=== PATIENT | male | born 1960 | race Caucasian/White ===

== ENCOUNTER 2023-04-10 09:40 | Day surgery (SDC) | payer MEDICARE, MEDICAID, SELFPAY ==
[2023-04-10] VITALS (7 sets, daily range): BP systolic 103–138; BP diastolic 68–84; PULSE 74–94; RESP 14–18; TEMP 36.1; O2SAT 94–100; BMI 19.9
[2023-04-10] MEDS: Lactated Ringers 1,000 ML 100 ML IVCONT (10:16)
--- NOTE | 2023-04-10 11:00 | HO.ANESPROP2 ---
Documented by User: Adelina Booker NP 04/09/23 10:05 HPI - Anesthesia Eval Consult details Narrative: 63yo M for Right Eye Muscle Superior Oblique PCP cleared Fentanyl patch PMFSH Past Medical History Medical History History of intestinal obstruction Smoker GARCÍA (obstructive sleep apnea) History of pneumonia Asthma Hypogonadism in male Elevated cholesterol Sleep apnea COPD (chronic obstructive pulmonary disease) Neuropathy Pulmonary nodule History of traumatic head injury Depression Back pain Surgical History Surgical History Hx of hernia repair History of back surgery Social History Social History Patient Tobacco Use Status: Never used Tobacco Use of substances other than those prescribed or required for medical reasons: No Are you DNR?: No Advance Directives: No Advance Directives Information Provided: Yes Meds Allergies Allergy/AdvReac Type Severity Reaction Status Date / Time No Known Allergies Allergy Verified 04/05/23 12:30 Home Medications Medication Instructions Recorded Confirmed Last Taken Type docusate sodium 100 mg capsule 100 mg PO BID 04/05/23 04/05/23 Unknown History fentanyl 100 mcg/hr transdermal 1 patch transdermal Q72H 04/05/23 04/05/23 Unknown History patch gabapentin 300 mg capsule 300 mg PO TID 04/05/23 04/10/23 04/10/23 History hydroxyzine HCl 25 mg tablet 25 mg PO BEDTIME PRN insomnia 04/05/23 04/05/23 Unknown History oxycodone 5 mg tablet 5 mg PO Q4H PRN Pain 04/05/23 04/05/23 Unknown History polyethylene glycol 3350 17 17 g PO DAILY 04/05/23 04/05/23 Unknown History gram/dose oral powder (Miralax) sennosides 8.6 mg tablet (senna) 17.2 mg PO BEDTIME 04/05/23 04/05/23 Unknown History sertraline 50 mg tablet 75 mg PO DAILY 04/05/23 04/10/23 04/10/23 History tiotropium bromide 18 mcg capsule 1 cap inhalation DAILY 04/05/23 04/05/23 Unknown History with inhalation device (Spiriva with HandiHaler) Exam Height,Weight and Vital Signs: Height 5 ft 6 in Weight 56.245 kg Assessment and Plan Assessment Anesthesia Assessment: Chart Reviewed Documented by User: Lilo Brown DO 04/10/23 11:04 HPI - Anesthesia Eval Consult details Narrative: 63yo M for Right Eye Muscle Superior Oblique PCP cleared Fentanyl patch - 100 mcg/hr [facility] Past Medical History Medical History History of intestinal obstruction Smoker GARCÍA (obstructive sleep apnea) History of pneumonia Asthma Hypogonadism in male Elevated cholesterol Sleep apnea COPD (chronic obstructive pulmonary disease) Neuropathy Pulmonary nodule History of traumatic head injury Depression Back pain Family History Family history of problems with anesthesia: No Surgical History Surgical History Hx of hernia repair History of back surgery History of Problems with Anesthesia: No Social History Social History Patient Tobacco Use Status: Never used Tobacco Use of substances other than those prescribed or required for medical reasons: No Are you DNR?: No Advance Directives: No Advance Directives Information Provided: Yes Meds Allergies Allergy/AdvReac Type Severity Reaction Status Date / Time No Known Allergies Allergy Verified 04/05/23 12:30 Home Medications Medication Instructions Recorded Confirmed Last Taken Type docusate sodium 100 mg capsule 100 mg PO BID 04/05/23 04/05/23 Unknown History fentanyl 100 mcg/hr transdermal 1 patch transdermal Q72H 04/05/23 04/05/23 Unknown History patch gabapentin 300 mg capsule 300 mg PO TID 04/05/23 04/10/23 04/10/23 History hydroxyzine HCl 25 mg tablet 25 mg PO BEDTIME PRN insomnia 04/05/23 04/05/23 Unknown History oxycodone 5 mg tablet 5 mg PO Q4H PRN Pain 04/05/23 04/05/23 Unknown History polyethylene glycol 3350 17 17 g PO DAILY 04/05/23 04/05/23 Unknown History gram/dose oral powder (Miralax) sennosides 8.6 mg tablet (senna) 17.2 mg PO BEDTIME 04/05/23 04/05/23 Unknown History sertraline 50 mg tablet 75 mg PO DAILY 04/05/23 04/10/23 04/10/23 History tiotropium bromide 18 mcg capsule 1 cap inhalation DAILY 04/05/23 04/05/23 Unknown History with inhalation device (Spiriva with HandiHaler) Exam Exam Date and Time: April 10, 2023 1100 Height,Weight and Vital Signs: Height 5 ft 6 in Weight 56.245 kg Vital Signs Temperature 97.0 F 04/10/23 10:14 Pulse Rate 94 04/10/23 10:14 Respiratory Rate 16 04/10/23 10:14 Blood Pressure 138/78 04/10/23 10:14 Pulse Oximetry 94 04/10/23 10:14 Oxygen Delivery Method Room Air 04/10/23 10:14 Temperature 97.0 F 04/10/23 10:14 Pulse Rate 94 04/10/23 10:14 Respiratory Rate 16 04/10/23 10:14 Blood Pressure 138/78 04/10/23 10:14 Pulse Oximetry 94 04/10/23 10:14 Oxygen Delivery Method Room Air 04/10/23 10:14 Airway Mallampati Class: II TM Dist: >3cm Neck ROM: Limited Denture: Upper Heart: S1S2 Lungs: CTAB Assessment and Plan Assessment Anesthesia Assessment: Anesthesia Plan Discussed and Chart Reviewed Final Anesthetic Review Family History of Problems with Anesthesia: No History of Problems with Anesthesia: No NPO: Yes ASA Class: III Final Preanesthetic Review: No Changes in Pt Med Stat, Meds/Allgs Chart Reviewed, Consent Obtained/Reviewed and Anes Risks/Benef Reviewed Patient Risk: Intermediate Procedure Risk: Low Anesthetic Plan Anesthetic Plan: GA and Agree w/ Assess. and Plan Disposition: Standard PACU
[2023-04-10] MEDS: Acetaminophen 1,000 MG/100 ML PIGGYBACK 400 MG IV (12:38)
--- NOTE | 2023-04-10 14:41 | HO.OPHTHAL ---
Ophthalmology Operative Note Date of Service: 04/10/23 Narrative: Diagnosis Brown's syndrome right eye. Procedure right superior oblique tenotomy right eye. Surgeon Dr. Bolton. Anesthesia general. Complications none. The patient was brought to the operative room Center general anesthesia. The eyes were prepped and draped in the usual sterile ophthalmic fashion. A lid speculum was placed in the right eye and forced ductions revealed significant resistance to elevation in adduction of the eye. A incision was made in the superior temporal fornix and the superior rectus was hooked with a large muscle hook. The superior oblique tendon was carefully identified and grasped with a small tenotomy hooked and transferred to the large muscle hook. It was cut approximately 5 mm from the insertion completely with a 5 mm piece excised from the nasal portion. Conjunctiva was closed with interrupted Vicryl sutures. Repeat forced ductions revealed no resistance to elevation in adduction. The patient was then awoken from general anesthesia and discharged to postoperative recovery in good condition.
== END 2023-04-10 14:30 | disposition home or self-care (01) ==
LOC: HO.SSS 09:41
PROVIDERS: PCP Physician Assistant; Visit Provider Ophthalmology
PROC: (CPT 67318; principal; 2023-04-10 11:30)
DX: H53.2 Diplopia (principal); H50.611 Brown's sheath syndrome, right eye; G47.33 Obstructive sleep apnea (adult) (pediatric); J44.9 Chronic obstructive pulmonary disease, unspecified; Z85.118 Personal history of other malignant neoplasm of bronchus and lung; Z87.891 Personal history of nicotine dependence; Z99.81 Dependence on supplemental oxygen; I25.2 Old myocardial infarction; Z95.0 Presence of cardiac pacemaker; Z95.1 Presence of aortocoronary bypass graft; Z79.51 Long term (current) use of inhaled steroids; Z87.820 Personal history of traumatic brain injury; G62.9 Polyneuropathy, unspecified; Z79.899 Other long term (current) drug therapy; Z98.890 Other specified postprocedural states
CPT/HCPCS: 67318; 67320; J0131; J1100; J1885; J2405; J2704; J3010